=== PATIENT | female | born 1955 ===

== ENCOUNTER 2020-09-28 05:36 | Day surgery (SDC) | payer OTHER ==
[2020-09-28] MEDS ORDERED: MACROBID 100 M100 MG PO (10:27)
[2020-09-28] MEDS ORDERED: ULTRACET PO (10:27)
== END 2020-09-28 13:15 | disposition home or self-care (01) ==
LOC: CIR.AMB 05:36
PROVIDERS: ATTEND Obstetrics & Gynecology Gynecology
DX: N81.6 Rectocele (principal); N81.5 Vaginal enterocele; Z20.822 Contact with and (suspected) exposure to COVID-19